=== PATIENT | female | born 1985 | race African-American/Black ===

== ENCOUNTER 2020-12-10 21:01 | Emergency (ER) | payer SELFPAY ==
[~2020-12-10] VITALS: Ht 172.7 cm; Wt 86.0 kg
[2020-12-10 21:40] VITALS: BP 128/75
[2020-12-10] MEDS ORDERED: NEOM28.37 TP (22:36)
[2020-12-10] MEDS ORDERED: ACETAMINOPHEN 500MG TABLET PO ONE (23:00)
== END 2020-12-10 23:14 | disposition home or self-care (01) ==
LOC: ER 21:01
DX: S93.409A Sprain of unspecified ligament of unspecified ankle, initial encounter (principal); Z86.59 Personal history of other mental and behavioral disorders; X58.XXXA Exposure to other specified factors, initial encounter; Y93.89 Activity, other specified; Y92.89 Other specified places as the place of occurrence of the external cause; Y99.8 Other external cause status
CPT/HCPCS: 81025; 99283